=== PATIENT | female | born 1965 | race African-American/Black ===

== ENCOUNTER 2017-02-21 09:12 | Day surgery (SDC) | payer MEDICARE, MEDICAID ==
--- NOTE | 2017-02-21 07:27 | History and Physical - [facility] ---
CHIEF COMPLAINT/HISTORY OF CHIEF COMPLAINT: This patient presents with a history of multiple sclerosis and bilateral lower extremity muscle spasms and leg cramping. This has been identified as a relapsing remitting type of multiple sclerosis. Oral Baclofen did help, but had some issues with respect to appropriate dose titration. PAST MEDICAL HISTORY: Multiple sclerosis. PAST SURGICAL HISTORY: None listed. MEDICATIONS ON ADMISSION: List to be provided. ALLERGIES: None. FAMILY/PSYCHOSOCIAL HISTORY: Family history - Diabetes. Social history - Noncontributory. SYSTEMS REVIEW: The patient seems appropriate in no acute distress. PHYSICAL EXAMINATION: Height is 5'3", weight is 100 pounds. Vital signs - Not available. HEENT: Within normal limits. LUNGS: Clear. HEART: Regular rate and rhythm. ABDOMEN: Nontender. MUSCULOSKELETAL: Examination of the musculoskeletal system shows the primary symptom pattern to be lower extremity and mostly below the knees characterized as stiffness, muscle spasm, and myoclonus. NEUROLOGIC: Cranial nerves are intact. IMPRESSION: MULTIPLE SCLEROSIS, ICD10 CODE G35.0. PLAN: The patient is here for a Baclofen trial which will involve the implantation of a catheter and a titration of Baclofen over the next ten to fourteen days. A bolus of 50 mcg will be given and a 50 mcg infusion will be started. She will be titrated up roughly every three to five days to an appropriate dose which will resolve her symptom pain. The procedure will involve an overnight stay, dural puncture for the spinal catheter placement will involve an epidural blood patch. The potential risks, side effects and complications have all been carefully reviewed and discussed including spinal cord injury, nerve root injury, dural puncture, spinal headache and infection. She understands and has consented. CHELSIE AKHTAR D.O. Date & Time JOB NUMBER: [id number] MTDD
[~2017-02-21 09:12] MED LIST: ACETAMINOPHEN 1000MG/100 ML PREMIX IV ONE; BACLOFEN 10 MCG in 0.9 % SODIUM CHLORIDE 10ML VIA 0.98 ML IT ONE; BACLOFEN 5,000 MCG in 0.9 % SODIUM CHLORIDE 500ML 490 ML IT ONE; CEFAZOLIN 2 Gram 50 ML IVPB ONE; FAMOTIDINE 20MG TABLET PO ONE; MECLIZINE 25 MG TABLET PO ONE; METOCLOPRAMIDE 10 MG TABLET PO ONE
[2017-02-21] MEDS ORDERED: HYDROMORPHONE HCL 2 MG/ML VIAL IM PRN (11:45)
[2017-02-21] MEDS ORDERED: SENNOSIDES/DOCUSATE SODIUM UD CAPSULE PO PRN ×2 (11:45)
[2017-02-21] MEDS ORDERED: HYDROMORPHONE HCL 1 MG/ML CPJ IM PRN (11:45)
[2017-02-21] MEDS ORDERED: HYDROCODONE/APAP 7.5/325MG TABLET PO PRN ×2 (11:45)
[2017-02-21] MEDS ORDERED: NALOXONE 0.4 MG/1 ML VIAL IVP PRN (11:45)
[2017-02-21] MEDS ORDERED: METOCLOPRAMIDE HCL 10 MG/2 ML VIAL IVP PRN (11:45)
[2017-02-21] MEDS ORDERED: ACETAMINOPHEN 325 MG TAB PO PRN ×2 (11:45)
[2017-02-21] MEDS ORDERED: METOCLOPRAMIDE 10 MG TABLET PO PRN (11:45)
[2017-02-21] MEDS ORDERED: AL HYDROX/MAG HYDROX 30ML UD PO PRN (11:45)
[2017-02-21] MEDS ORDERED: TEMAZEPAM 15 MG CAPSULE PO PRN ×2 (11:45)
[2017-02-21] MEDS ORDERED: DIPHENHYDRAMINE HCL IV 50 MG/ML VIAL IVP PRN ×2 (11:45)
[2017-02-21] MEDS ORDERED: DIPHENHYDRAMINE HCL 25 MG CAPSULE PO PRN ×2 (11:45)
[2017-02-21] MEDS ORDERED: OXYCODONE/APAP 10MG-325MG TABLET PO PRN ×2 (11:45)
[2017-02-21] MEDS ORDERED: PROPOFOL 10 MG/ML VIAL IV ONE (14:00)
[2017-02-21] MEDS ORDERED: MORPHINE SULFATE 5 MG/ML PFS IVP ONE (14:00)
[2017-02-21] MEDS ORDERED: MIDAZOLAM HCL 2MG/2ML VIAL IV ONE (14:00)
[2017-02-21] MEDS ORDERED: CEFAZOLIN 1G VIAL IM ONE (16:57)
[2017-02-21] MEDS ORDERED: CEFAZOLIN 2 Gram 2 GM/50 ML BAG IVPB SCH (17:45)
--- NOTE | 2017-02-23 11:47 | Operative Note ---
DATE OF SURGERY: 02/21/2017 PREOPERATIVE DIAGNOSIS: Relapsing, remitting multiple sclerosis. ICD10 code: G35.0 OPERATION: 1. Fluoroscopic-guided access spinal space at L3-4, placement of thin-wall spinal catheter T10. 2. Diagnostic myelography with radiologic supervision interpretation. 3. Bolus baclofen spinal space 25 mcg. 4. Incision subsection and anchoring the spinal catheter to the supraspinous fascia using anchoring device and nonabsorbable suture. 5. Incision, subdissection and creation of a subcutaneous pouch left flank. 6. Tunneling between pouches, placement of spinal catheter into flank pouch. 7. Resection and interface spinal catheter with secondary catheter component by way of connector. 8. Tunneling secondary catheter component, 6 cm superior exiting skin. 9. Interface external catheter to external infusion device set to deliver baclofen at 50 mcg per day. 10. Closure of midline incision with Vicryl fascial running subcuticular Vicryl for skin. Closure of flank incision with Nylon suture. Dressings placed securing catheter and all connections under sterile dressing. 11. Epidural blood patch at L4-5, 20 mL autologous blood drawn in sterile technique left antecubital. Surgeon: Sander Bailey D.O. Anesthesia: Local sedation. Anesthesia Provider: Ant Fontenot CRNA Indication: This patient presents with a history of multiple sclerosis, symptomatic with respect to bilateral lower extremity. She is here for a baclofen infusion trial to determine if the implantation of a permanent system can be of any value in symptom control. An implanted catheter technique is being utilized to minimize needle penetrations in the spinal space and to reduce the incidence of spinal headache. PROCEDURE: Intravenous line, vital sign monitoring, IV sedation. Prepped and draped in sterile technique under imaging. The patient was positioned prone. Sterile prep, sterile technique. The spinal interspace at L3-4 marked on the skin. Skin infiltrated. A 20 gauge spinal needle paramedian approach with long axis inserted in the spinal space with CSF flow. Needle position by AP and lateral view. With CSF flow, a thin-walled spinal catheter was advanced to position T10. Diagnostic myelography performed. The resulting flow ____ smoothly into the interspace showing central flow characteristics. Catheter was clamped. Skin above and below the needle infiltrated. Incision was made to subcutaneous dissection which was conducted to the supraspinous fascia. The needle was removed. The catheter was anchored to the supraspinous fascia with anchor device and nonabsorbable suture. At the left flank, skin infiltrated, incision made and subcutaneous dissection was conducted forming a small pouch. A tunneling tool used to carry the spinal catheter into the flank pouch. The spinal catheter was resected and interfaced with a 2nd catheter component by way of connector. A tunneling tool was then used to carry the 2nd catheter component 6 cm above the flank pouch exiting the skin. The 2nd catheter component was interfaced to an external infusion device which was set to delivery baclofen at 50 mcg per day. The midline incision was with then closed with Vicryl fascial running subcuticular for skin and the flank pouch closed with Nylon suture. Dressings placed. The epidural interspace 1 level below the dural puncture at 4-5 marked, infiltrated, then an 18-gauge Tuohy needle with loss of resistance at the epidural space. Simultaneously, 20 mL of autologous blood drawn in sterile technique. Left antecubital placed onto the field. Epidural blood patch was then performed at this point at this level, needle removed and the dressings were reinforced and the infusion device started as per above. She was transferred to the recovery room flat, pillow under head and knees. Stable. Showing no side effects from the procedure or the sedation. She will remain flat for 4 hours, slowly elevated, and if stable be considered dischargeable. DISCHARGE INSTRUCTIONS: 1. Site is to remain clean and dry. No showering or bathing in any way that would disrupt dressings. If it happens, contact the clinic. 2. Standard medications resumed including Levaquin, the antibiotic, 500 mg once a day for 14 days. 3. Side effects relative to the baclofen carefully explained and reviewed. 4. She will be seen in the office in 3-5 days to increase the baclofen if necessary. Other instructions provided. Numbers to contact if problems given. DO JUAN Diaz
--- NOTE | 2017-02-26 13:57 | RADIOLOGY REPORT ---
EXAM: AP THORACIC SPINE HISTORY: PUMP TRIAL. TECHNIQUE: AP view of the thoracic spine was obtained. Comparison: None. FINDINGS: Dextroconvex scoliosis of the thoracic spine. Stimulator lead difficulty delineated. There may be a marker at the mid T10 level. IMPRESSION: STIMULATOR LEAD DIFFICULTY DELINEATED. THERE MAY BE A TIP MARKER AT THE MID T10 LEVEL. JOB NUMBER: [id number] MTDD
== END 2017-02-21 16:56 | disposition home or self-care (01) ==
LOC: SUR 09:12 → MEDSURG 11:50 → SUR 16:56
PROVIDERS: ATTEND Pain Medicine Interventional Pain Medicine
DX: G35 Multiple sclerosis (principal)
CPT/HCPCS: 62350; 00630; 72020; Q9967; J0690; J2270; J0475; J7040

== ENCOUNTER 2017-03-07 07:35 | Day surgery (SDC) | payer MEDICARE, MEDICAID ==
[~2017-03-07 07:35] MED LIST changes: +ACETAMINOPHEN 1,000 MG/100 ML BTL IV ONE; -ACETAMINOPHEN 1000MG/100 ML PREMIX IV ONE; -BACLOFEN 10 MCG in 0.9 % SODIUM CHLORIDE 10ML VIA 0.98 ML IT ONE; -BACLOFEN 5,000 MCG in 0.9 % SODIUM CHLORIDE 500ML 490 ML IT ONE; +CEFAZOLIN 2 Gram 2 GM/50 ML BAG IVPB ONE; -CEFAZOLIN 2 Gram 50 ML IVPB ONE
--- NOTE | 2017-03-07 09:44 | History and Physical - [facility] ---
CHIEF COMPLAINT/HISTORY OF CHIEF COMPLAINT: This patient presents with a history of multiple sclerosis and an implanted spinal catheter for Baclofen infusion to determine if the implantation of a permanent system would be of any value in her pain control. Over the trial period she initially had excellent success, but subsequently developed some weakness in her extremities and requested removal of the system. PAST MEDICAL HISTORY: Multiple sclerosis. PAST SURGICAL HISTORY: Implanted spinal catheter infusion trial. MEDICATIONS ON ADMISSION: List to be provided. ALLERGIES: None. FAMILY/PSYCHOSOCIAL HISTORY: Family history - Diabetes. Social history - Noncontributory. SYSTEMS REVIEW: The patient is appropriate in no acute distress. PHYSICAL EXAMINATION: Height is 5'3", weight is 100. No vital signs. HEENT: Within normal limits. LUNGS: Clear. HEART: Regular rate and rhythm. ABDOMEN: Nontender. MUSCULOSKELETAL: Examination of the musculoskeletal system shows the implanted catheter dressings are intact. The external infusion device is intact. Sensory gomez are intact. NEUROLOGIC: Cranial nerves are intact. IMPRESSION: 1. MULTIPLE SCLEROSIS, ICD10 CODE G35.0. 2. IMPLANTED SPINAL CATHETER INFUSION TRIAL USING BACLOFEN. PLAN: Although this patient had excellent results and was feeling well on the initial infusion, towards the end of the infusion as we approximated the date of implant or removal she indicated that she was staring to feel weakness and did not like the feeling and requested its removal. She is here for removal of the system. She was requesting pain medications and this will be reverted back to her primary. CHELSIE AKHTAR D.O. Date & Time JOB NUMBER: [id number] [facility]
[2017-03-07] MEDS ORDERED: PROPOFOL 10 MG/ML VIAL IV ONE (14:00)
[2017-03-07] MEDS ORDERED: MIDAZOLAM HCL 2MG/2ML VIAL IV ONE (14:00)
[2017-03-07] MEDS ORDERED: LIDOCAINE 2% MDV (20MG/ML) 20ML VIAL IV ONE (14:00)
[2017-03-07] MEDS ORDERED: CEFAZOLIN 1G VIAL IM ONE (16:15)
[2017-03-07] MEDS ORDERED: BUPIVACAINE 0.5% W/EPI MPF 30 ML VIAL IVP ONE (16:15)
[2017-03-07] MEDS ORDERED: LIDOCAINE 1% W/EPI 1:200,000 MPF 30ML SQ ONE (16:15)
[2017-03-07] MEDS ORDERED: HYDROCODONE/APAP 7.5/325MG TABLET PO ONE (16:15)
--- NOTE | 2017-03-14 18:55 | Operative Note ---
DATE OF SURGERY: 03/07/2017 PREOPERATIVE DIAGNOSES: 1. Multiple sclerosis, ICD10 code G35.0. 2. Implanted spinal fusion trial baclofen. OPERATION: 1. Incision, subdissection, and removal of indwelling spinal catheter. 2. Incision, subdissection, and removal of externalized interface catheter subcutaneous. Anesthesia: Local with sedation. Anesthesia Provider: Arturo Moran. Surgeon: Sander Bailey DO Indication: This patient presents with a history of relapsing and remitting multiple sclerosis with a spinal infusion trial of baclofen to be determined with the implantation program system, could be of any value in pain control. Although initial results seemed to be very optimistic, subsequently she developed side effects. She is here for removal. PROCEDURE: Intravenous line, vital signs monitoring, IV sedation. Prepped and draped with sterile technique. Under imaging, the incision for the midline catheter infiltrated, incision made, subcutaneous dissection was conducted to the anchor. The anchor was removed intact. The catheter was removed intact. Pursestring suture placed to stop CSF leak. At the left flank, an incision for the externalized catheter interfaced to the indwelling catheter. Skin infiltrated, incision made, subcutaneous dissection was conducted to the anchor. The anchor was removed along with 2 catheter components interfacing internal with external. Antibiotic irrigation and Bovie for hemostasis. The incisions were then closed with Vicryl for fascia and running subcuticular with Vicryl for skin. Dermabond closure system. The implanted catheter anchor connector and external catheter all removed intact. She was transferred to the recovery room stable showing no signs or symptoms of from the procedure or the sedation. DISCHARGE INSTRUCTIONS: 1. Sites to remain clean and dry. No showering or bathing in any way that disrupts dressings. If it happens, contact clinic. 2. Standard medications resumed including antibiotic Levaquin 500 mg once a day for 14 days. 3. Office to contact patient in 3-5 days to set up the evaluation in 1 week to evaluate the sites. CC: Dr. Julian MARTINEZ
== END 2017-03-07 12:15 | disposition home or self-care (01) ==
LOC: SUR 07:35
PROVIDERS: ATTEND Pain Medicine Interventional Pain Medicine
DX: T85.890A Other specified complication of nervous system prosthetic devices, implants and grafts, initial encounter (principal); G35 Multiple sclerosis
CPT/HCPCS: 62365; 62355; 00300; J0690